=== PATIENT | male | born 1985 | race Caucasian/White ===

== ENCOUNTER 2017-12-29 17:41 | Emergency (ER) | payer OTHER ==
[~2017-12-29] VITALS: Ht 188 cm; Wt 104.3 kg
[~2017-12-29 17:41] MED LIST: ALBU90OI INH; AMOX500 PO; CIPR500 PO; CYCL10 PO; Cortisporin Ear10 ML LEFTEAR; HYDACE5 PO; IBUP600 PO; IBUP800 PO; LORA1 PO; METR500 PO; NAPR500 PO; Naprosyn500 MG PO; Norco 5-325 Ta1 EACH PO; OXYACE5T PO; PROM25 PO; RXOXYACE PO; RXPROM25S PR; Veetids 500500 MG PO
[2017-12-29] MEDS ORDERED: ERYT1OIN RIGHTEYE (19:04)
== END 2017-12-29 19:11 | disposition home or self-care (01) ==
LOC: ER 17:41
DX: T15.01XA Foreign body in cornea, right eye, initial encounter (principal); F17.200 Nicotine dependence, unspecified, uncomplicated; W45.8XXA Other foreign body or object entering through skin, initial encounter
CPT/HCPCS: 65222; 99283

== ENCOUNTER → 2021-06-06 | Outpatient (CLI) | payer OTHER ==
[~2021-06-06] MED LIST changes: +ERYT1OIN RIGHTEYE
== END | disposition home or self-care (01) ==
LOC: LAB SHORT 12:39 → LAB 12:39
DX: D37.02 Neoplasm of uncertain behavior of tongue (principal); Z72.0 Tobacco use
CPT/HCPCS: 88305

== ENCOUNTER 2022-10-06 12:32 | Emergency (ER) | payer OTHER ==
[~2022-10-06] VITALS: Ht 188 cm; Wt 104.3 kg
== END 2022-10-06 13:56 | disposition home or self-care (01) ==
LOC: ER 12:32
DX: S61.210A Laceration without foreign body of right index finger without damage to nail, initial encounter (principal); W26.8XXA Contact with other sharp object(s), not elsewhere classified, initial encounter; F17.200 Nicotine dependence, unspecified, uncomplicated
CPT/HCPCS: 12001; 99282

== ENCOUNTER 2024-09-05 15:53 | Emergency (ER) | payer OTHER ==
[~2024-09-05] VITALS: Ht 188 cm; Wt 108.9 kg
[~2024-09-05 15:53] MED LIST changes: +AMOCLA875 PO; +LIDO700A20 TOP
[2024-09-05 15:57] VITALS: BP 164/90
== END 2024-09-05 17:05 | disposition home or self-care (01) ==
LOC: ER 15:53
DX: S61.011A Laceration without foreign body of right thumb without damage to nail, initial encounter (principal); F17.220 Nicotine dependence, chewing tobacco, uncomplicated; W27.0XXA Contact with workbench tool, initial encounter
CPT/HCPCS: 12001; 73130; 99283-25